=== PATIENT | male | born 1955 | race Caucasian/White ===

== ENCOUNTER 2018-04-18 20:01 | Observation (INO) ==
--- NOTE | 2018-04-18 21:02 | DR.GENAD ---
HPI - PCP Primary Care Physician: YAS - Complaint/Symptoms Chief Complaint Doctors Comments: I agree with statement as written. Patient denies cigarettes or alcohol. He denies family history of cardiac disease. Chief Complaint:: PT STATES" WEDNESDAY I GOT HOT AND FELT DIZZY AND I COULDN'T STAND UP I'VE DONE THIS BEFORE WHEN I GET OVER HEATED. NOW I'M STILL HAVING SOME CHEST PAIN AND PRESSURE SO I CAME IN" - Source History Provided: Patient - Mode of Arrival Mode of Arrival: Ambulatory - Timing Onset of Chief Complaint: 04/16/18 PMH - PMH Past Medical History: Yes Past Medical History: Depression, Hypertension Past Surgical History: No - Family History History of Family Medical Conditions: Yes Family Medical History: Cancer, Hypertension - Social History Type of Tobacco Use: None Does any household member use tobacco: No Alcohol Use: None Do you use any recreational Drugs:: No Lives With: Family Lives Where: Home - infectious screening In the last 2 months have you had wt loss of >10#?: NO Have you had fever, night sweats or hemotysis?: No Have you traveled outside the country in the last 6 months?: No Isolation: Standard ROS - Review of Systems Eyes: No Symptoms Reported ENTM: No Symptoms Reported Respiratoy: No Symptoms Reported Cardiovascular: No Symptoms Reported Gastrointestinal/Abdominal: No Symptoms Reported Genitourinary: No Symptoms Reported Neurological: No Symptoms Reported Musculoskeletal: No Symptoms Reported Integumentary: No Symptoms Reported Hematologic/Lymphatic: No Symptoms Reported Endocrine: No Symptoms Reported Psychiatric: No Symptoms Reported All Other Systems: Reviewed and Negative PE - General Limitations: No Limitations General Appearance: Alert, In No Apparent Distress - Head Head Exam: Normal Inspection, Atraumatic - Eyes Eye exam: Normal Appearance, PERRL, EOMI - ENT ENT Exam: Normal Exam External Ear Exam: Normal External Inspection TM/Canal Exam: Bilateral Normal Nose Exam: Normal Nose Exam, Sinus Tenderness Mouth Exam: Normal Inspection Throat Exam: Normal Inspection - Neck Neck Exam: Normal Inspection, Full ROM - Chest Chest Inspection: Normal Inspection - Respiratory Respiratory Exam: Normal Lung Sounds Bilat Respiratory Exam: Bilateral Clear to Auscultation - Cardiovascular Cardiovascular Exam: Regular Rate, Normal Rhythm - Abdominal Exam Abdominal Exam: Normal Inspection, Normal Bowel Sounds Abdominal Tenderness: negative: RUQ, RLQ, LUQ, LLQ, Epigastrium, Suprapubic, Diffuse, Mild, Moderate, Severe, Other - Extremities Extremities Exam: Normal Inspection, Full ROM - Back Back Exam: Normal Inspection, Full ROM - Neurologic Neurological Exam: Alert, Oriented X3, CN II-XII Intact - Skin Skin Exam: Warm, Dry, Intact - Vital Signs Vitals: Temperature 97.6 F Pulse Rate 79 Respiratory Rate 18 Blood Pressure 139/67 O2 Sat by Pulse Oximetry 97 Course - Reevaluation 1st: Improved - Consultation Called: 23:41 (Dr Justice agreed to admit for chest pain r/o) ROR - Labs Reviewed Result Diagrams: 04/18/18 21:12 04/18/18 21:12 - Labs Reviewed Laboratory: WBC 12.0 X10^3/uL (3.6-10.0) H 04/18/18 21:12 RBC 4.39 X10^6/uL (4.7-6.0) L 04/18/18 21:12 Hgb 13.1 g/dL (13.5-18.0) L 04/18/18 21:12 Hct 38.1 % (42.0-54.0) L 04/18/18 21:12 MCV 86.7 fL (80.0-100.0) 04/18/18 21:12 MCH 29.9 pg (27.0-34.0) 04/18/18 21:12 MCHC 34.5 g/dL (33.0-35.0) 04/18/18 21:12 RDW 15.3 % (11.6-16.5) 04/18/18 21:12 Plt Count 274 X10^3/uL (150.0-450.0) 04/18/18 21:12 MPV 8.8 fL (7.4-11.0) 04/18/18 21:12 Neut % (Auto) 45.6 % (42.0-75.0) 04/18/18 21:12 Lymph % (Auto) 43.5 % (21.0-51.0) 04/18/18 21:12 [place] % (Auto) 6.9 % (0.0-13.0) 04/18/18 21:12 Eos % (Auto) 2.8 % (0.9-2.9) 04/18/18 21:12 Baso % (Auto) 1.2 % (0.2-1.0) H 04/18/18 21:12 Neut # (Auto) 5.5 x10^3/uL (2.2-4.8) H 04/18/18 21:12 Lymph # (Auto) 5.2 X10^3/uL (1.3-2.9) H 04/18/18 21:12 [place] # (Auto) 0.8 x10^3/uL (0.3-0.8) 04/18/18 21:12 Eos # (Auto) 0.3 x10^3/uL (0.0-0.2) H 04/18/18 21:12 Baso # (Auto) 0.1 X10^3/uL (0.0-0.1) 04/18/18 21:12 Absolute Nucleated RBC 0.0 /100WBC 04/18/18 21:12 INR Target Range - 04/18/18 21:12 INR 1.03 (0.8-1.3) 04/18/18 21:12 APTT 21.7 SECONDS (22.9-36.5) L 04/18/18 21:12 PTT Comment - 04/18/18 21:12 D-Dimer 126 ng/mL (0-400) 04/18/18 21:12 Sodium 140 mmol/L (136-145) 04/18/18 21:12 Corrected Sodium 144 mmol/L (136-145) 04/18/18 21:12 Potassium 3.9 mmol/L (3.5-5.1) 04/18/18 21:12 Chloride 105 mmol/L (98-107) 04/18/18 21:12 Carbon Dioxide 25.8 mmol/L (21-32) 04/18/18 21:12 BUN 15 mg/dL (7-18) 04/18/18 21:12 Creatinine 1.48 mg/dL (0.70-1.30) H 04/18/18 21:12 Est GFR (MDRD) Af Amer > 60 (>60) 04/18/18 21:12 Est GFR (MDRD) Non-Af 51 (>60) L 04/18/18 21:12 Glucose 272 mg/dL (65-99) H 04/18/18 21:12 Calcium 9.2 mg/dL (8.5-10.1) 04/18/18 21:12 Corrected Calcium TNP 04/18/18 21:12 Total Bilirubin 0.20 mg/dL (0.2-1.0) 04/18/18 21:12 AST 22 Units/L (15-37) 04/18/18 21:12 ALT 46 Units/L (12-78) 04/18/18 21:12 Alkaline Phosphatase 59 Units/L (46-116) 04/18/18 21:12 Creatine Kinase 83 Units/L (39-308) 04/18/18 21:12 CK-MB (CK-2) 1.1 ng/mL (0-4.0) 04/18/18 21:12 CK/CKMB % Calc 1.3 % (<4) 04/18/18 21:12 Troponin I < 0.02 ng/mL (0-1.5) 04/18/18 21:12 C-Reactive Protein 4.50 mg/L (0-3.0) H 04/18/18 21:12 Total Protein 7.0 g/dL (6.4-8.2) 04/18/18 21:12 Albumin 3.8 g/dL (3.4-5.0) 04/18/18 21:12 Globulin 3.2 g/dL (2.5-4.5) 04/18/18 21:12 Albumin/Globulin Ratio 1.2 Ratio (1.1-2.1) 04/18/18 21:12 H. pylori IgG Antibody Negative (NEGATIVE) 04/18/18 21:12 - Diagnosis Discharge Problem: Ruled out for myocardial infarction Chest pain Qualifiers: Chest pain type: unspecified Qualified Code(s): R07.9 - Chest pain, unspecified - Discharge Plan Condition: Stable - Follow ups/Referrals Follow ups/Referrals: GERMÁN SORENSON [Primary Care Provider] - 3 days - Instructions
[2018-04-18 21:19] LABS: BASOPHILS # (AUTO) 0.1 X10^3/uL (0.0-0.1); BASOPHILS % (AUTO) 1.2 % (0.2-1.0); EOSINOPHILS # (AUTO) 0.3 x10^3/uL (0.0-0.2); EOSINOPHILS % (AUTO) 2.8 % (0.9-2.9); HEMATOCRIT 38.1 % (42.0-54.0); HEMOGLOBIN 13.1 g/dL (13.5-18.0); LYMPHOCYTES # (AUTO) 5.2 X10^3/uL (1.3-2.9); LYMPHOCYTES % (AUTO) 43.5 % (21.0-51.0); MEAN CORPUSCULAR HEMOGLOBIN 29.9 pg (27.0-34.0); MEAN CORPUSCULAR HGB CONC 34.5 g/dL (33.0-35.0); MEAN CORPUSCULAR VOLUME 86.7 fL (80.0-100.0); MEAN PLATELET VOLUME 8.8 fL (7.4-11.0); MONOCYTES # (AUTO) 0.8 x10^3/uL (0.3-0.8); MONOCYTES % (AUTO) 6.9 % (0.0-13.0); NEUTROPHILS # (AUTO) 5.5 x10^3/uL (2.2-4.8); NEUTROPHILS % (AUTO) 45.6 % (42.0-75.0); PLATELET COUNT 274 X10^3/uL (150.0-450.0); RED BLOOD COUNT 4.39 X10^6/uL (4.7-6.0); RED CELL DISTRIBUTION WIDTH 15.3 % (11.6-16.5)
[2018-04-18 21:38] LABS: BLOOD UREA NITROGEN 15 mg/dL (7-18); CALCIUM 9.2 mg/dL (8.5-10.1); CARBON DIOXIDE 25.8 mmol/L (21-32); CHLORIDE 105 mmol/L (98-107); COR NA(FOR HYPERGLY) 144 mmol/L (136-145); CREATININE 1.48 mg/dL (0.70-1.30); SODIUM 140 mmol/L (136-145); TROPONIN I < 0.02 ng/mL (0-1.5); eGFR NON BLACK RACES 51 (>60)
[2018-04-18 21:42] LABS: ALANINE AMINOTRANSFERASE 46 Units/L (12-78); ALBUMIN 3.8 g/dL (3.4-5.0); ALKALINE PHOSPHATASE 59 Units/L (46-116); ASPARTATE AMINO TRANSFERASE 22 Units/L (15-37); CKMB % 1.3 % (<4); CREATINE KINASE 83 Units/L (39-308); CREATINE KINASE MB 1.1 ng/mL (0-4.0)
[2018-04-19 01:32] VITALS: BMI 22.9
[2018-04-19 03:11] LABS: CKMB % 1.6 % (<4); CREATINE KINASE 63 Units/L (39-308); CREATINE KINASE MB < 1.0 ng/mL (0-4.0); TROPONIN I < 0.02 ng/mL (0-1.5)
[2018-04-19 07:15] LABS: CHOL/HDL RATIO 3.4 (0.0-5.0)
[2018-04-19 07:37] LABS: CKMB % 1.6 % (<4); CREATINE KINASE 63 Units/L (39-308); CREATINE KINASE MB < 1.0 ng/mL (0-4.0); TROPONIN I < 0.02 ng/mL (0-1.5)
[2018-04-19] MEDS ORDERED: WELLBUTRIN SR 150 MG (BID) PO SCH (09:00)
[2018-04-19] MEDS ORDERED: ZEBETA TAB 5 MG PO SCH (09:00)
[2018-04-19] MEDS ORDERED: TRICOR TAB 160 MG PO SCH (09:00)
[2018-04-19] MEDS ORDERED: LIPITOR TAB 20 MG PO SCH (09:00)
[2018-04-19] MEDS ORDERED: ZESTRIL TAB 20 MG PO SCH (09:00)
[2018-04-19] MEDS ORDERED: BISOPROLOL HYDROCHLOROTHIAZIDE PO SCH (09:00)
[2018-04-19] MEDS ORDERED: HYDROCHLOROTHIAZIDE 25 MG TAB PO SCH (09:00)
[2018-04-19] MEDS ORDERED: ZESTRIL TAB 20 MG ONE (09:04)
[2018-04-19 12:06] VITALS: BP 141/60
== END 2018-04-19 14:20 | disposition home or self-care (01) ==
LOC: MED/SURG 20:01 → ER 20:01 → MED/SURG 04-19 00:10
PROVIDERS: ADMIT Obstetrics & Gynecology Obstetrics; ATTEND Obstetrics & Gynecology Obstetrics
DX: I10 Essential (primary) hypertension; D72.828 Other elevated white blood cell count; R79.82 Elevated C-reactive protein (CRP); R94.4 Abnormal results of kidney function studies; R07.89 Other chest pain; E13.9 Other specified diabetes mellitus without complications
CPT/HCPCS: 36415; 71020; 71046; 80053; 80061; 82550; 82553; 83036; 84484; 85025; 85378; 85610; 85730; 86140; 86677; 93005; 93010; 94760; 96365; 99284; A4216; A4222; S0106; G0378